=== PATIENT | male | born 1950 | race Caucasian/White ===

== ENCOUNTER 2023-07-10 13:53 | Outpatient (RCR) | payer MEDICARE, BC, SELFPAY | END 2024-01-06 23:59 | disposition home or self-care (01) | LOC: CCIC 13:53 | PROVIDERS: Visit Provider Internal Medicine | DX: C61 Malignant neoplasm of prostate (principal); C79.51 Secondary malignant neoplasm of bone | CPT/HCPCS: 99211 ==